=== PATIENT | female | born 2000 | race Caucasian/White ===

== ENCOUNTER 2019-09-30 18:01 | Emergency (ER) | payer OTHER ==
[~2019-09-30] VITALS: Ht 172.7 cm; Wt 73.6 kg
[2019-09-30 18:01] VITALS: BP 122/85
[2019-09-30] MEDS ORDERED: PREN29TA4 PO (18:06)
[2019-09-30 19:04] LABS: HEMATOCRIT 32.7 % (36.0-47.0); HEMOGLOBIN 11.2 g/dl (12.0-15.5); MEAN CORPUSCULAR HEMOGLOBIN 29.1 pg (27.0-33.0); MEAN CORPUSCULAR HGB CONC 34.3 g/dl (32.0-36.5); MEAN CORPUSCULAR VOLUME 84.9 fl (80.0-96.0); PLATELET COUNT, AUTOMATED 189 10^3/uL (150-450); RED BLOOD COUNT 3.85 10^6/uL (4.00-5.40); WHITE BLOOD COUNT 7.3 10^3/uL (4.0-10.0)
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
[2019-09-30 19:21] LABS: INR 1.01
== END 2019-09-30 20:26 | disposition home or self-care (01) ==
LOC: M ED 18:01
DX: O9A.212 Injury, poisoning and certain other consequences of external causes complicating pregnancy, second trimester (principal); S39.91XA Unspecified injury of abdomen, initial encounter; Y04.8XXA Assault by other bodily force, initial encounter; Y92.121 Bathroom in nursing home as the place of occurrence of the external cause; Y93.F1 Activity, caregiving, bathing; Y99.0 Civilian activity done for income or pay; Z85.71 Personal history of Hodgkin lymphoma; Z3A.20 20 weeks gestation of pregnancy

== ENCOUNTER 2020-02-12 05:20 | Inpatient (IN) | payer OTHER ==
[~2020-02-12] VITALS: Ht 172.7 cm; Wt 98.3 kg
[2020-02-12] VITALS (35 sets, daily range): BP systolic 103–153; BP diastolic 58–96
[~2020-02-12 05:20] MED LIST: PREN29TA4 PO
[2020-02-12] MEDS ORDERED: PENICILLIN G POTASSIUM IV 5 MU in D5W MINI-BAG PLUS 100 ML IV STA (06:46)
[2020-02-12] MEDS ORDERED: LACTATED RINGER'S 1000 ML IV ONE (07:00)
[2020-02-12 07:12] LABS: HEMATOCRIT 33.7 % (36.0-47.0); HEMOGLOBIN 10.6 g/dl (12.0-15.5); MEAN CORPUSCULAR HGB CONC 31.5 g/dl (32.0-36.5); MEAN CORPUSCULAR VOLUME 76.2 fl (80.0-96.0); PLATELET COUNT, AUTOMATED 219 10^3/uL (150-450); RED BLOOD COUNT 4.42 10^6/uL (4.00-5.40); WHITE BLOOD COUNT 11.3 10^3/uL (4.0-10.0)
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
[2020-02-12] MEDS: LR 1,000 ML IV SCH ×3 (07:58→22:46)
--- NOTE | 2020-02-12 11:07 | IPNPDOC ---
Obstetrical Progress Note Date of Service Feb 12, 2020 Subjective Pt c/o back pain, coping with position changes and intermittent hydrotherapy Objective Vital Signs Date Time Temp Pulse Resp B/P (MAP) Pulse Ox O2 Delivery O2 Flow Rate FiO2 02/12/20 09:11 98.6 90 18 128/86 (100) Assessment Heart Rate (FHR): 140 Variability: Moderate Accelerations: Positive Decelerations: None Heart Rate Tracing: Category I Tocometer Contractions: Yes Frequency: every 3-7 min. Duration: greater than 60 seconds Strength: palpated as moderate Assessment and Plan Age: 19 : 20 Term: 1 Pre-term: 0 Abortions: 0 Livin EGA at Admission: 40 (+1) Status: Reassuring Group B Streptococcus: Positive Anticipate: Vaginal Delivery Additional Comments A: 19yo bayron [id number] @40+1, O+, GBS+, SROM P: saline lock, encourage oral hydration, continue gbs prophylaxis, intermittent monitoring per protocol, encourage maternal movement, monitor for change in or maternal status, consider pitocin augmentation if labor does not continue to progress, evaluate for change in or maternal status, anticipate vaginal delivery OLGA LIDIA DELANEY CNM Feb 12, 2020 11:07
[2020-02-12] MEDS: PENICILLIN G POTASSIUM IV 2.5 MU in IV 1 EA IV SCH ×3 (12:16→20:01)
[2020-02-12] MEDS ORDERED: PROMETHAZINE INJ 25 MG/ML VIAL (J2550) IV ONE (14:00)
[2020-02-12] MEDS ORDERED: BUTORPHANOL 2 MG/ML INJ (J0595) IV ONE (14:00)
[2020-02-12] MEDS ORDERED: OXYTOCIN DRIP 30 UNITS in IV 1 EA IV SCH (14:00)
--- NOTE | 2020-02-12 14:03 | IPNPDOC ---
Obstetrical Progress Note Date of Service Feb 12, 2020 Subjective Pt c/o increased pain and desire to sleep Objective Vital Signs Date Time Temp Pulse Resp B/P (MAP) Pulse Ox O2 Delivery O2 Flow Rate FiO2 02/12/20 12:09 98.6 86 20 124/83 (97) Tocometer Contractions: Yes Sterile Vaginal Examination Dilation: 2cm (exam per nursing staff) Effacement (%): 50% Station: -2 Cervical Consistency: Soft Cervical Position: Middle Postion/Presentation: Cephalic presentation Assessment and Plan Age: 19 : 1 Term: 0 Pre-term: 0 Abortions: 0 Livin EGA at Admission: 40 (+1) Status: Reassuring Group B Streptococcus: Positive Anticipate: Vaginal Delivery Additional Comments Patient counseled on options for pain medication and augmentation of labor with pitocin. Patient desires IV pain medication and consents to augmentation of labor. Reviewed need for return to continuous monitoring and IV fluids with augmentation of labor. Pt expressed understanding of all instructions. lr@125ml/hr, continuous efm x2, stadol 2mg iv x1, phenergan 25mg iv x1, initiate pitocin augmentation and titrate per protocol, monitor for change in or maternal status and evaluate as indicated, anticipate vaginal delivery OLGA LIDIA DELANEY CNM Feb 12, 2020 14:03
[2020-02-12] MEDS ORDERED: FENTANYL 2MCG/ML ROPIVACAINE 0.2% IN 0.9% NACL 100ML IVBAG As Ordered ONE (14:24)
--- NOTE | 2020-02-12 14:48 | IPNPDOC ---
Obstetrical Progress Note Date of Service Feb 12, 2020 Objective Vital Signs Date Time Temp Pulse Resp B/P (MAP) Pulse Ox O2 Delivery O2 Flow Rate FiO2 02/12/20 12:09 98.6 86 20 124/83 (97) Assessment and Plan Additional Comments FHR 130s, mod variability with -accel, occasional early decels noted on return to fhr monitoring. Catrachita q2-4 min spontaneously. Cervical exam 4/90/-2 w ith bulging forebag noted on exam. AROM bag for additional clear fluid. Accels noted with scalp stim of exam. Discontinue stadol and phenergan order, intiate lr bolus for epidural anesthesia and notify anesthesia of patient request, then return to lr @125ml/hr, continue gbs prophylaxis, continuous efm x2, monitor for change in or maternal status, continue pitocin augmentation and titrate per protocol, evaluate for change as indicated, anticipate vaginal delivery. OLGA LIDIA DELANEY CNM Feb 12, 2020 14:48
[2020-02-12] MEDS ORDERED: diphenhydrAMINE 50MG/ML VIAL (J1200) IV PRN (15:30)
[2020-02-12] MEDS ORDERED: EPIDURAL COMMENT XX SCH (15:30)
[2020-02-12] MEDS ORDERED: EPIDURAL/PCA KEYS XX PRN (15:30)
[2020-02-12] MEDS ORDERED: LACTATED RINGER'S 1000 ML IV PRN (15:30)
[2020-02-12] MEDS ORDERED: REFRIGERATOR IV KEYS XX PRN (15:30)
[2020-02-12] MEDS ORDERED: ePHEDrine SULFATE 25 MG/5 ML(5MG/ML) SYRINGE IV PRN (15:30)
[2020-02-12] MEDS ORDERED: NALOXONE INJ 0.4MG/1ML VIAL (J2310 PER 1MG) IV PRN (15:30)
[2020-02-12] MEDS ORDERED: ONDANSETRON 4MG/2ML VIAL IV PRN (15:30)
[2020-02-12] MEDS: FENTANYL/ROPIVACAINE/NACL BAG 100 ML EPIDURAL SCH ×2 (15:35→22:24)
--- NOTE | 2020-02-12 19:48 | IPNPDOC ---
Obstetrical Progress Note Date of Service Feb 12, 2020 Subjective 19 yo G1 @ 40+1 who is being induced at term. comfortable in bed with epidural in place. FHT: 130, MOD robert, +accels, -Decels-- cat I TRACING sve: /0, caput noted on exam EFW 3900f by my Saúl [place]: 4-08/15, pit @11 A/P Now in active labor. cat I tracing. continue pitocin per L&D protocol Anticipate Objective Vital Signs Date Time Temp Pulse Resp B/P (MAP) Pulse Ox O2 Delivery O2 Flow Rate FiO2 02/12/20 18:34 98.8 102 18 120/84 (96) DEBORAH ROSENBERG MD Feb 12, 2020 19:48
--- NOTE | 2020-02-12 20:29 | IPNPDOC ---
Obstetrical Progress Note Date of Service Feb 12, 2020 Subjective to room for assessment as patient is feeling more pelvic pressure. on exam found to be c/c/+1, found to be breech via US, Head to fundus. Discussed with patient that I recommand C/D for breech presentation. she expressed understanding and agrees with plan. will order 2g Ancef and 500mg azithromycin solutions developer to the OR Objective Vital Signs Date Time Temp Pulse Resp B/P (MAP) Pulse Ox O2 Delivery O2 Flow Rate FiO2 02/12/20 18:34 98.8 102 18 120/84 (96) DEBORAH ROSENBERG MD Feb 12, 2020 20:29
[2020-02-12] MEDS ORDERED: AZITHROMYCIN INJ 500 MG, VIAL MATE ADAPTER 1 EACH in D5W 250 ML IV ONE (20:30)
[2020-02-12] MEDS ORDERED: ceFAZolin SOD 2 GM in IV 1 EA IV ONE (20:30)
[2020-02-12] MEDS ORDERED: BICITRA 30ML SOLN UDC PO ONE (20:30)
[2020-02-13] VITALS (22 sets, daily range): BP systolic 101–178; BP diastolic 54–80
[2020-02-13] MEDS: PENICILLIN G POTASSIUM IV 2.5 MU in IV 1 EA IV SCH ×2 (00:07→04:00)
--- NOTE | 2020-02-13 00:52 | IPNPDOC ---
Obstetrical Progress Note Date of Service Feb 13, 2020 Subjective patient was complete at 1200. nursing has been pushing with her since. she is first time mom and is still trying to get the hang of thins. discussed as long as baby looks reasuring, she get up to 4hrs of pushing. EFW 3900g. feels like patient has enough room in the pelvis to deliver, but if she cannot, will likely proceed to C/D. will continue to monitor progress. Objective Vital Signs Date Time Temp Pulse Resp B/P (MAP) Pulse Ox O2 Delivery O2 Flow Rate FiO2 02/12/20 22:32 99 18 103/61 (75) 02/12/20 21:24 98.7 Sterile Vaginal Examination Dilation: complete Effacement (%): 100% Station: +2 DEBORAH ROSENBERG MD Feb 13, 2020 00:52
[2020-02-13] MEDS ORDERED: BICITRA 30ML SOLN UDC As Ordered ONE (03:27)
[2020-02-13] MEDS ORDERED: ceFAZolin 2 GM/D5W 50 ML IV BAG (J0690 PER 500MG) As Ordered ONE (03:28)
[2020-02-13] MEDS ORDERED: AZITHROMYCIN INJ 500MG VIAL (J0456 PER 500MG) As Ordered ONE (03:28)
--- NOTE | 2020-02-13 03:41 | IPNPDOC ---
Obstetrical Progress Note Date of Service Feb 13, 2020 Subjective Patient has been pushing for a little over 3 and half hours. she continues to be at +1 with developing caput. patient is also tired and has developed severe vulva swelling. status continues to be reassuring. we discussed with patient that for a G1 with epidural she gets 4 hrs of pushing before diagnosing arrest of descent. at this point however it is resonable to stop pushing as she is tired and we can start preparing for the C/D. Patient as expressed understanding and agrees with plan. 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 -BACK UP Dr. Mark called in for assistance for this expected difficult delivery for deep arrest. Objective Vital Signs Date Time Temp Pulse Resp B/P (MAP) Pulse Ox O2 Delivery O2 Flow Rate FiO2 02/12/20 22:32 99 18 103/61 (75) 02/12/20 21:24 98.7 DEBORAH ROSENBERG MD Feb 13, 2020 03:41
[2020-02-13] MEDS ORDERED: MORPHINE PRES-FREE INJ 10 MG/10 ML VIAL (J2274) As Ordered ONE (03:44)
[2020-02-13] MEDS ORDERED: TRANEXAMIC ACID IV ONE (03:45)
[2020-02-13] MEDS ORDERED: BICITRA 30ML SOLN UDC PO ONE (03:45)
[2020-02-13] MEDS ORDERED: AZITHROMYCIN INJ 500 MG, VIAL MATE ADAPTER 1 EACH in D5W 250 ML IV ONE (03:45)
[2020-02-13] MEDS ORDERED: ceFAZolin SOD 2 GM in IV 1 EA IV ONE (03:45)
[2020-02-13] MEDS ORDERED: NS IV ONE (03:45)
[2020-02-13] MEDS ORDERED: SODIUM BICARBONATE 8.4% INJ 50 ML SYRINGE As Ordered ONE (03:48)
[2020-02-13] MEDS ORDERED: LIDOCAINE 2% W/EPINEPHRINE 20ML VIAL **PRES FREE As Ordered ONE (03:49)
[2020-02-13] MEDS ORDERED: OXYTOCIN INJ 10 UNITS/ML VIAL (J2590) As Ordered ONE (03:49)
[2020-02-13] MEDS ORDERED: METOCLOPRAMIDE INJ 10MG/2ML VIAL (J2765 PER 1) IV PRN ×2 (04:18→06:00)
[2020-02-13] MEDS ORDERED: diphenhydrAMINE 50MG/ML VIAL (J1200) IV PRN (04:18)
[2020-02-13] MEDS ORDERED: NALOXONE INJ 0.4MG/1ML VIAL (J2310 PER 1MG) IV PRN ×2 (04:18)
[2020-02-13] MEDS ORDERED: NALBUPHINE HCL 10 MG/ML AMP (J2300) IV PRN (04:18)
[2020-02-13] MEDS ORDERED: ONDANSETRON 4MG/2ML VIAL IV PRN ×2 (04:18→06:00)
[2020-02-13] MEDS ORDERED: fentaNYL 100 MCG/2 ML INJECTION (J3010) As Ordered ONE (04:28)
[2020-02-13] MEDS ORDERED: ONDANSETRON 4MG/2ML VIAL As Ordered ONE (04:41)
[2020-02-13] MEDS ORDERED: dexameTHASONE 4 MG/ML 1ML VIAL (J1100 PER 1MG) As Ordered ONE (04:41)
[2020-02-13] MEDS ORDERED: OXYTOCIN 30 UNITS IN 0.9% NaCl 500ML IV BAG (J2590) As Ordered ONE (04:59)
[2020-02-13] MEDS ORDERED: KETOROLAC 60MG 2ML VIAL As Ordered ONE (05:14)
[2020-02-13] MEDS ORDERED: OXYTOCIN DRIP 30 UNITS in IV 1 EA IV SCH (05:24)
[2020-02-13] MEDS ORDERED: MOM 30ML SUSPENSION UDC PO PRN (05:30)
[2020-02-13] MEDS ORDERED: ACETAMINOPHEN 500 MG TAB PO PRN (05:30)
[2020-02-13] MEDS ORDERED: DOCUSATE SODIUM 100 MG CAP PO PRN (05:30)
[2020-02-13] MEDS ORDERED: oxyCODONE 5MG TAB PO PRN (05:30)
[2020-02-13] MEDS ORDERED: PROMETHAZINE 25 MG TAB PO PRN (05:30)
[2020-02-13] MEDS ORDERED: ONDANSETRON 4 MG TAB PO PRN (05:30)
[2020-02-13] MEDS ORDERED: ANUSOL HC CREAM 30GM TOP PRN (05:30)
--- NOTE | 2020-02-13 05:43 | ROOPDOC ---
[facility] Report Of Operation Report of Operation DATE OF PROCEDURE: 02/13/20 PREPROCEDURE DIAGNOSES: PROM, INduction of labor, GBS positive, Arrest of descent POSTPROCEDURE DIAGNOSES: same as above. PROCEDURE: Primary low transverse delivery SURGEON: Deborah ROSENBERG MD TREADLE CUT OFF SAW OPERATOR: LESA PURVIS MD ANESTHESIA: Joshua, Lamin- epidural. ESTIMATED BLOOD LOSS: Approximately 800mL. COMPLICATIONS: none REMARKS: UOP: 300ml, IVF: 1800ml, Weight [id number], 4820g PROCEDURE NOTE: Short OP REPORT: Pfannenstiel incision, lower uterine transverse incision, delivery of female breech female infant with apgars of 8/9. manual placenta delivery. hysterotomy closure in two layers with 0-monocryl. fascia closure with 0-vicryl. subc closure with 2-0 vicryl running, skin clsoure with 3-0 monocryl on a julian needle. opti-foam dressing used. patient tolerated procedure without issues. DESCRIPTION OF PROCEDURE: After proper consent was obtained, patient was taked to the OR and epidural anesthesia was found to be adequate. she was then prepped and draped in sterile fashion in the dorsosupine position with left tilt. A pfannenstiel skin incision was then made with a scalp and carried to the fascia. the fascia was incised in the midline and the incision was extended laterally with moreno scissors. the superior aspect of the fascia was grasped with sonia clamps, elevated amd the underlying rectus muscle dissected off bluntly. the lower aspect of the fascia was also grasped and the rectus muscles dissected off bluntly. The rectus muscles were then in the midline, the peritoneum identified and entered bluntly. the peritoneum incision was extended superiorly and laterally by manual traction with good visualization of the bladder. The Mobius retractor was then inserted and a bladder flap was made. the lower uterine segment was then incised in a transverse fashion with the scalpel and the incision was extended bluntly superiorly with manual traction. the infants head was dislodged and delivered atraumatically followed by shoulders and corpus. the cord was cut and female was then handed to the NICU team with apgars of 8/9 and [id number]. The placenta was then delivery manually and the hysterotomy closed in two layers with o-Monocryl. great hemostasis was obtained. the uterine was returned in the abdomen and the gutters cleaned using moist laps. the Mobius retractor was then removed and again hemostasis checked and found to be satisfactory. Fascia was then closed with 0-vicryl and running fashion. the subc was closed with 2-0 vicryl in a running fashion. the skin was then closed with 3-0 monocryl on a julian needle. the opti- foam was used for dressing. Patient tolerated procedure well and was taken to the PACU in stable condition. DEBORAH ROSENBERG MD Feb 13, 2020 05:43
[2020-02-13] MEDS ORDERED: fentaNYL 100 MCG/2 ML INJECTION (J3010) IV PRN (06:00)
[2020-02-13] MEDS ORDERED: MEPERIDINE INJ 25 MG/ML VIAL (J2175) IV PRN (06:00)
[2020-02-13] MEDS ORDERED: LR 1,000 ML IV SCH (06:00)
[2020-02-13] MEDS ORDERED: PERCOCET 5MG/325MG TAB PO PRN (06:00)
[2020-02-13] MEDS: FERROUS SULFATE 325MG TAB PO SCH (09:01)
[2020-02-13] MEDS: FENTANYL/ROPIVACAINE/NACL BAG 100 ML EPIDURAL SCH (11:30)
[2020-02-13] MEDS: KETOROLAC 30 MG/ML 1ML VIAL IV SCH ×2 (12:21→18:25)
[2020-02-13] MEDS: LR 1,000 ML IV SCH ×2 (12:46→14:19)
[2020-02-14] MEDS: KETOROLAC 30 MG/ML 1ML VIAL IV SCH (00:15)
[2020-02-14 02:00] VITALS: BP 117/69
[2020-02-14 06:00] VITALS: BP 118/78
[2020-02-14 07:28] LABS: HEMATOCRIT 25.4 % (36.0-47.0); HEMOGLOBIN 7.8 g/dl (12.0-15.5); MEAN CORPUSCULAR HEMOGLOBIN 24.1 pg (27.0-33.0); MEAN CORPUSCULAR HGB CONC 30.7 g/dl (32.0-36.5); MEAN CORPUSCULAR VOLUME 78.6 fl (80.0-96.0); PLATELET COUNT, AUTOMATED 163 10^3/uL (150-450); RED BLOOD COUNT 3.23 10^6/uL (4.00-5.40); WHITE BLOOD COUNT 12.2 10^3/uL (4.0-10.0)
[2020-02-14] MEDS: IBUPROFEN 800 MG TAB PO SCH ×3 (09:02→23:43)
[2020-02-14] MEDS: FERROUS SULFATE 325MG TAB PO SCH (09:02)
[2020-02-14 10:00] VITALS: BP 112/71
[2020-02-14 14:00] VITALS: BP 124/68
[2020-02-14 18:00] VITALS: BP 123/75
[2020-02-14 22:00] VITALS: BP 120/72
[2020-02-15 02:20] VITALS: BP 124/75
[2020-02-15 05:38] VITALS: BP 128/78
[2020-02-15] MEDS ORDERED: IBUP80TA PO (06:42)
[2020-02-15] MEDS ORDERED: DOCU100C16 PO (06:42)
[2020-02-15] MEDS ORDERED: OXYC-517 PO (06:42)
[2020-02-15 08:01] LABS: HEMATOCRIT 24.8 % (36.0-47.0); HEMOGLOBIN 7.6 g/dl (12.0-15.5); MEAN CORPUSCULAR HEMOGLOBIN 24.1 pg (27.0-33.0); MEAN CORPUSCULAR HGB CONC 30.6 g/dl (32.0-36.5); MEAN CORPUSCULAR VOLUME 78.7 fl (80.0-96.0); PLATELET COUNT, AUTOMATED 198 10^3/uL (150-450); RED BLOOD COUNT 3.15 10^6/uL (4.00-5.40); WHITE BLOOD COUNT 9.7 10^3/uL (4.0-10.0)
[2020-02-15] MEDS: IBUPROFEN 800 MG TAB PO SCH (08:13)
[2020-02-15] MEDS: FERROUS SULFATE 325MG TAB PO SCH (08:13)
--- NOTE | 2020-02-16 06:59 | DS ---
DATE OF ADMISSION: 02/12/2020 DATE OF DISCHARGE: A 19-year-old 1, now para 1, who was admitted at 40 weeks and 1 day with spontaneous rupture of membranes. She had a primary section for deep transverse arrest with delivery of a live female infant, 10 pounds 10 ounces (4820 grams), Apgars of 8 and 9 at one and five minutes respectively. She is GBS positive, treated prophylactically and she is in remission of Hodgkins lymphoma. Her admitting hemoglobin was 10.6, hematocrit 33.7 and platelets were 219,000. Discharge hemoglobin 7.8, hematocrit 25.4 and platelets were 163,000. She is asymptomatic. PHYSICAL EXAMINATION: Her blood pressure was 128/78, respiratory rate 15, pulse 84, temperature 97.6. The rest of the examination is unremarkable. Normocephalic, atraumatic. Neck full range of motion. Pupils equal and reactive to light. Distal pulses are symmetric. No evidence of DVT, PE or superficial phlebitis. Chest is clear bilaterally to bases, no wheezes or rhonchi. No CVA tenderness. Abdomen is soft, four quadrant bowel sounds are noted. Uterus is two below, incision is clean and dry. Her vulva area which was completely swollen for the last 48 hours has now resolved with ice diapers and she is able to void after the Eubanks catheter was removed. The rest of the examination is unremarkable. She has no urgency or frequency. No nausea, vomiting, diarrhea or constipation. IN SUMMARY: I have a term gestation, delivered a live female infant, 10 pounds 10 ounces (4820 grams). Baby is presently in the NICU at [facility] because of a possible intracranial bleed. Patient is expected to go down to [facility]. Travel instructions were given. Keep well hydrated, mobilized, take her pain meds with her, frequent stops. Six-week checkup at [facility] and two-week incision check. Medications were dispensed at [place]. All questions were answered; 20-minute discussion. SABRINA
--- NOTE | 2020-02-16 08:19 | IPN ---
DATE: 02/14/2020 SUBJECTIVE: A 19-year-old 1, now para 1, admitted at 40 weeks and 1 day with spontaneous rupture of membranes. She had a primary section for deep transverse arrest of lie female infant weighing 10 pounds, 10 ounces, 4820 grams, Apgars of 8 and 9 at 1 and 5 minutes respectively. Risk factors are she was GBS positive, treated on time, and she has a remission for Hodgkins lymphoma. Admitting hemoglobin was 10.6, hematocrit was 33.7 and platelets were 219,000. Her day # hemoglobin was 7.8, hematocrit 25.4, platelets 163,000. She is asymptomatic and we are going to repeat her CBC tomorrow morning at 0600 hours. PHYSICAL EXAMINATION: Vital signs today: Her blood pressure is 118/78, respirations are 18, pulse is 82, temperature is 98.5. The patient wanted to go down to [place] to see her baby who is in the NICU, however with her extremely swollen vulva and with her Eubanks catheter left in because of her extremely swollen vulva, the fact that she is anemic although she is not symptomatic it would not be a good idea for her to travel especially today in the COVID environment. The patient expressed an understanding of same. We are continuing to ice diaper her vulva, it has come down considerably but it is still present and we will attempt to do that tomorrow, we possibly may be able to send her home with a Eubanks catheter. Patient expressed an understanding. The rest of the examination was unremarkable. Normocephalic, atraumatic. Neck: Full range of motion. Pupils equal and reactive to light. She is pale but she is not symptomatic. No DVT, PE or superficial phlebitis. Chest is clear bilaterally at the bases. No wheezes or rhonchi. No CVA tenderness. Abdomen is soft, four quadrant bowel sounds are noted. Uterus is two below, the incision is clean and dry with a dressing. No rashes, lesions or pruritus. No arthralgias or myalgias, no complaint of joint pain. No complaint of cough, wheezing, shortness of breath or dyspnea on exertion. No nausea, vomiting, diarrhea or constipation. No urgency or frequency. ASSESSMENT: Patient understands the plan of care for herself as to try and reduce enough of the vulvar swelling as well as get her to void on her own and we will repeat her CBC to see what she bottoms out at in regard to hemoglobin and hematocrit. Patient is anxious obviously because her baby is in the NICU at [place] but she is in contact with the nurse several times during the day. All questions were answered, a 20 minute discussion. SABRINA
== END 2020-02-15 10:10 | disposition home or self-care (01) | DRG 773 ==
LOC: M LDO 05:20 → M LDI 06:08 → M OBS 02-13 05:45
PROVIDERS: ADMIT Obstetrics & Gynecology; ATTEND Obstetrics & Gynecology
PROC: 10D00Z1 Extraction of Products of Conception, Low, Open Approach (ICD-10-PCS; principal; 2020-02-13 05:41)
DX: O48.0 Post-term pregnancy (principal); O99.824 Streptococcus B carrier state complicating childbirth; Z3A.40 40 weeks gestation of pregnancy; O64.0XX0 Obstructed labor due to incomplete rotation of fetal head, not applicable or unspecified; Z37.0 Single live birth

== ENCOUNTER 2021-06-26 05:55 | Inpatient (IN) | payer OTHER ==
[~2021-06-26] VITALS: Ht 172.7 cm; Wt 92.5 kg
[2021-06-26] VITALS (9 sets, daily range): BP systolic 113–130; BP diastolic 66–94
[~2021-06-26 05:55] MED LIST changes: +DOCU100C16 PO; +FERR325T81 PO; +IBUP80TA PO; +IRON1TAB2 PO; +OXYC-517 PO; +PREN1TAB26 PO
[2021-06-26] MEDS ORDERED: LR 500 ML IV ONE (06:00)
[2021-06-26] MEDS ORDERED: ceFAZolin SOD 2 GM in IV 1 EA IV ONE (06:00)
[2021-06-26] MEDS ORDERED: BICITRA 30ML SOLN UDC PO ONE (06:00)
[2021-06-26] MEDS ORDERED: LR 1,000 ML IV SCH ×3 (06:30→11:15)
[2021-06-26] MEDS ORDERED: HOME MED LIST COMPLETE! XX SCH (06:40)
[2021-06-26 07:04] LABS: HEMATOCRIT 32.7 % (36.0-47.0); HEMOGLOBIN 10.1 g/dl (12.0-15.5); MEAN CORPUSCULAR HEMOGLOBIN 22.9 pg (27.0-33.0); MEAN CORPUSCULAR HGB CONC 30.9 g/dl (32.0-36.5); MEAN CORPUSCULAR VOLUME 74.1 fl (80.0-96.0); PLATELET COUNT, AUTOMATED 208 10^3/uL (150-450); RED BLOOD COUNT 4.41 10^6/uL (4.00-5.40); WHITE BLOOD COUNT 7.3 10^3/uL (4.0-10.0)
[2021-06-26] MEDS ORDERED: MORPHINE PRES-FREE INJ 10 MG/10 ML VIAL (J2274) As Ordered ONE ×2 (08:17→09:14)
[2021-06-26] MEDS ORDERED: NALOXONE INJ 0.4MG/1ML VIAL (J2310 PER 1MG) IV PRN ×2 (09:21)
[2021-06-26] MEDS ORDERED: NALBUPHINE HCL 10 MG/ML AMP (J2300) IV PRN (09:21)
[2021-06-26] MEDS ORDERED: METOCLOPRAMIDE INJ 10MG/2ML VIAL (J2765 PER 1) IV PRN ×2 (09:21→11:15)
[2021-06-26] MEDS ORDERED: diphenhydrAMINE 50MG/ML VIAL (J1200) IV PRN (09:21)
[2021-06-26] MEDS ORDERED: ONDANSETRON 4MG/2ML VIAL IV PRN ×3 (09:21→11:15)
[2021-06-26 10:12] LABS: CORD GAS ABE V -2.5; CORD GAS HCO3 V 22.2 MEQ/L; CORD GAS O2 SAT V 85.9 %; CORD GAS PCO2 V 38.5 mmHg; CORD GAS PH V 7.379 UNITS; CORD GAS PO2 V 42.6 mmHg; CORD GAS SBC V 22.1 MEQ/L; CORD GAS TCO2 V 23.4 MEQ/L
[2021-06-26 10:14] LABS: CORD GAS ABE A -5.2; CORD GAS HCO3 A 21.7 MEQ/L; CORD GAS O2 SAT A 49.9 %; CORD GAS PCO2 A 47.2 mmHg; CORD GAS PH A 7.28 UNITS; CORD GAS PO2 A 24.1 mmHg; CORD GAS SBC A 19.2 MEQ/L; CORD GAS TCO2 A 23.1 MEQ/L
[2021-06-26] MEDS ORDERED: OXYTOCIN DRIP 30 UNITS in IV 1 EA IV SCH (10:55)
[2021-06-26] MEDS ORDERED: SIMETHICONE 80MG CHEW TAB PO PRN (10:55)
[2021-06-26] MEDS ORDERED: PROMETHAZINE 25 MG TAB PO PRN (10:55)
[2021-06-26] MEDS ORDERED: RHOGAM 300 MCG (1500 IU) INJ (J2790) IM SCH (10:55)
[2021-06-26] MEDS ORDERED: MEASLES,MUMPS,RUBELLA VACCINE INJ (MMR-II) (90707) SC SCH (10:55)
[2021-06-26] MEDS ORDERED: oxyCODONE 5MG TAB PO PRN ×2 (10:55)
[2021-06-26] MEDS ORDERED: ONDANSETRON 4MG/2ML VIAL As Ordered ONE (11:01)
[2021-06-26] MEDS ORDERED: KETOROLAC 60MG 2ML VIAL As Ordered ONE (11:01)
[2021-06-26] MEDS ORDERED: ePHEDrine SULFATE 25 MG/5 ML(5MG/ML) SYRINGE As Ordered ONE (11:01)
[2021-06-26] MEDS ORDERED: PHENYLephrine 500MCG 5ML (100MCG/ML) SYRINGE As Ordered ONE (11:01)
[2021-06-26] MEDS ORDERED: OXYTOCIN INJ 10 UNITS/ML VIAL (J2590) As Ordered ONE (11:01)
[2021-06-26] MEDS ORDERED: fentaNYL 100 MCG/2 ML INJECTION IV PRN (11:15)
[2021-06-26] MEDS ORDERED: MEPERIDINE INJ 25 MG/ML VIAL (J2175) IV PRN (11:15)
[2021-06-26] MEDS ORDERED: OXYTOCIN 30 UNITS IN 0.9% NaCl 500ML IV BAG (J2590) As Ordered ONE (11:15)
[2021-06-26] MEDS ORDERED: PERCOCET 5MG/325MG TAB PO PRN (11:15)
[2021-06-26] MEDS: PRENATAL VITAMINS CHEWABLE TABLET PO SCH (11:30)
[2021-06-26] MEDS: ACETAMINOPHEN 500 MG TAB PO SCH ×2 (13:20→19:11)
[2021-06-26] MEDS: KETOROLAC 30 MG/ML 1ML VIAL IV SCH ×2 (16:51→22:22)
[2021-06-26] MEDS: DOCUSATE SODIUM 100MG CAPSULE PO SCH (22:21)
[2021-06-27] VITALS (7 sets, daily range): BP systolic 106–133; BP diastolic 55–81
[2021-06-27] MEDS: ACETAMINOPHEN 500 MG TAB PO SCH ×5 (01:00→23:22)
[2021-06-27] MEDS: KETOROLAC 30 MG/ML 1ML VIAL IV SCH (05:15)
[2021-06-27 06:57] LABS: HEMATOCRIT 25.7 % (36.0-47.0); MEAN CORPUSCULAR HEMOGLOBIN 23.1 pg (27.0-33.0); MEAN CORPUSCULAR HGB CONC 31.5 g/dl (32.0-36.5); MEAN CORPUSCULAR VOLUME 73.4 fl (80.0-96.0); PLATELET COUNT, AUTOMATED 177 10^3/uL (150-450); WHITE BLOOD COUNT 8.1 10^3/uL (4.0-10.0)
[2021-06-27 07:02] LABS: HEMOGLOBIN 8.1 g/dl (12.0-15.5)
[2021-06-27] MEDS: DOCUSATE SODIUM 100MG CAPSULE PO SCH ×2 (09:27→20:53)
[2021-06-27] MEDS: PRENATAL VITAMINS CHEWABLE TABLET PO SCH (09:27)
[2021-06-27] MEDS: IBUPROFEN 800 MG TAB PO SCH ×2 (12:26→20:30)
[2021-06-28 02:00] VITALS: BP 135/65
[2021-06-28] MEDS: IBUPROFEN 800 MG TAB PO SCH (03:42)
[2021-06-28 06:00] VITALS: BP 132/83
[2021-06-28] MEDS: ACETAMINOPHEN 500 MG TAB PO SCH (06:30)
[2021-06-28] MEDS ORDERED: IBUP80TA PO (07:01)
[2021-06-28] MEDS ORDERED: COLA100C5 PO (07:01)
[2021-06-28] MEDS ORDERED: PRENCHW PO (07:01)
[2021-06-28] MEDS ORDERED: OXYC-517 PO (07:01)
[2021-06-28] MEDS: DOCUSATE SODIUM 100MG CAPSULE PO SCH (08:04)
[2021-06-28] MEDS: PRENATAL VITAMINS CHEWABLE TABLET PO SCH ×2 (08:04→08:26)
[2021-06-28] MEDS ORDERED: FIORICET TAB PO PRN (10:15)
== END 2021-06-28 12:12 | disposition home or self-care (01) | DRG 773 ==
LOC: M LDI 05:55 → M OBS 12:06
PROVIDERS: ADMIT Obstetrics & Gynecology; ATTEND Obstetrics & Gynecology
PROC: 10D00Z1 Extraction of Products of Conception, Low, Open Approach (ICD-10-PCS; principal; 2021-06-26 08:30)
DX: O34.211 Maternal care for low transverse scar from previous cesarean delivery (principal); Z3A.39 39 weeks gestation of pregnancy; Z37.0 Single live birth

== ENCOUNTER 2021-07-01 10:17 | Emergency (ER) | payer OTHER ==
[~2021-07-01] VITALS: Ht 172.7 cm; Wt 86.3 kg
== END 2021-07-01 12:03 | disposition home or self-care (01) ==
LOC: M ED 10:17
DX: R51.9 Headache, unspecified (principal); G97.1 Other reaction to spinal and lumbar puncture; Z79.891 Long term (current) use of opiate analgesic; Z79.899 Other long term (current) drug therapy

== ENCOUNTER → 2021-07-01 | Outpatient (CLI) | payer OTHER ==
[~2021-07-01] MED LIST changes: +COLA100C5 PO; +PRENCHW PO
[2021-07-01 13:05] VITALS: BP 121/82
== END ==
LOC: M RROUT 12:04
PROVIDERS: ATTEND Anesthesiology
DX: G97.1 Other reaction to spinal and lumbar puncture (principal); R51.9 Headache, unspecified